=== PATIENT | male | born 1940 | race Caucasian/White ===

== ENCOUNTER → 2017-08-19 | Outpatient (CLI) | payer OTHER ==
[~2017-08-19] MED LIST: COMBIGAN O20 DROP/5 BOTH EYES; LATANOPROST2.5 ML BOTH EYES; LISINOPRIL10 MG PO; NEXIUM40 MG PO; PREDNISONE10 MG PO; RANITIDINE HCL150 M1 PO; TESSALON200 MG PO
[2017-08-21 12:17] LABS: Flow Clinical Information NOT PROVIDED (()); Flow Number of Markers 22 (()); Flow Spec Viability 16 % (())
== END | disposition home or self-care (01) ==
LOC: OPR 08:38 → EDSTATUS 09:00
PROVIDERS: Internal Medicine Pulmonary Disease
PROC: 07B13ZX Excision of Right Neck Lymphatic, Percutaneous Approach, Diagnostic (ICD-10-PCS; principal; 2017-08-19)
DX: R59.0 Localized enlarged lymph nodes (principal)
CPT/HCPCS: 76942; 88305; 88341 TC; 88342 TC

== ENCOUNTER 2017-09-03 08:39 | Day surgery (SDC) | payer OTHER ==
[~2017-09-03] VITALS: Ht 182.9 cm; Wt 83.0 kg
[2017-09-03 09:21] VITALS: BP 161/77
[2017-09-03] MEDS ORDERED: LASIX20 MG PO (09:26)
[2017-09-03 13:45] VITALS: BP 132/65
[2017-09-03 14:21] VITALS: BP 223/88
[2017-09-03 14:49] VITALS: BP 143/67
[2017-09-06 14:15] LABS: Flow Number of Markers 22 (()); Flow Spec Viability 36 % (()); Flow Specimen Type LYMPH NODE (())
== END 2017-09-03 14:55 | disposition home or self-care (01) ==
LOC: SDC 08:39
PROVIDERS: Surgery
PROC: 07B13ZX Excision of Right Neck Lymphatic, Percutaneous Approach, Diagnostic (ICD-10-PCS; principal; 2017-09-03)
DX: R59.1 Generalized enlarged lymph nodes (principal); K22.2 Esophageal obstruction; K21.9 Gastro-esophageal reflux disease without esophagitis; I10 Essential (primary) hypertension; Z82.49 Family history of ischemic heart disease and other diseases of the circulatory system
CPT/HCPCS: 88305; J0690; J3010

== ENCOUNTER → 2017-09-28 | Outpatient (CLI) | payer OTHER ==
[~2017-09-28] MED LIST changes: +LASIX20 MG PO
== END | disposition home or self-care (01) ==
LOC: OPR 09:43 → EDSTATUS 10:00 → OPR 10:00
PROC: 0BBF3ZX Excision of Right Lower Lung Lobe, Percutaneous Approach, Diagnostic (ICD-10-PCS; principal; 2017-09-28)
DX: R91.8 Other nonspecific abnormal finding of lung field (principal); C85.92 Non-Hodgkin lymphoma, unspecified, intrathoracic lymph nodes; I10 Essential (primary) hypertension; K22.9 Disease of esophagus, unspecified
CPT/HCPCS: 71045; 77012; 88305; 88341 TC; 88342 TC; J3010

== ENCOUNTER 2017-10-22 11:51 | Inpatient (IN) | payer OTHER ==
[~2017-10-22] VITALS: Ht 182.9 cm; Wt 84.2 kg
[~2017-10-22 11:51] MED LIST changes: +ADVIL200 M3 PO; +COMPAZINE10 MG PO
[2017-10-22 12:33] LABS: BICARBONATE 26.1 mEq/L (22-26); CARBOXY HGB 2.1 % (0-5); PCO2 32 mm Hg (35-45); PO2 64 mm Hg (80-100); pH 7.52 (7.35-7.45)
[2017-10-22 12:34] LABS: BASE EXCESS 27.1 mEq/L (-3 to +3); COMMENTS - BLOOD GASES A+C+; DEVICE NC; O2 FLOW 2 L/MIN; SITE RR; TOTAL RESP RATE 27 resp/min
[2017-10-22 12:35] LABS: HEMATOCRIT 29.7 % (38.0-50.0); MCH 28.7 PG (29.0-34.0); MCHC 33.7 G/DL (30.0-36.0); MCV 85.3 FL (86-99); PLATELET COUNT 296 K/uL (156-360); RBC DIS.WIDTH-CV 16.8 % (11.8-14.6); RBC DIS.WIDTH-SD 48.8 % (39-53); RED BLOOD COUNT 3.48 M/uL (4.00-5.50); WHITE BLOOD COUNT 9.6 K/uL (4.1-10.2)
[2017-10-22 12:45] LABS: ALBUMIN 3.2 g/dL (3.2-4.8); CHLORIDE 98 mEq/L (99-109); POTASSIUM 4.6 mEq/L (3.7-5.4); SODIUM 133 mEq/L (136-147)
[2017-10-22 12:47] LABS: GLUCOSE 137 mg/dL (70-99); TOTAL PROTEIN 6.4 g/dL (6.4-8.3)
[2017-10-22 12:49] LABS: TOTAL BILIRUBIN 0.6 mg/dL (0.0-1.0)
[2017-10-22 12:51] LABS: ALKALINE PHOSPHATASE 70 IU/L (3-129); CREATININE 1.8 mg/dL (0.6-1.3); GFR ESTIMATE (CALCULATED) 39 mL/min/ (58.99-99999)
[2017-10-22 12:52] LABS: UREA NITROGEN (BUN) 27 mg/dL (9-23)
[2017-10-22 12:53] LABS: AST (GOT) 13 IU/L (2-34)
[2017-10-22 12:54] LABS: ALT (GPT) 11 IU/L (3-49)
[2017-10-22 12:57] LABS: TROP-I INTERPRETATION NEGATIVE; TROPONIN-I 0.02 ng/mL (0.0-0.30)
[2017-10-22 13:13] LABS: ABS NEUTROPHIL COUNT 8.6; EOSINOPHIL ABS CT 0.1; PLAT.SUFFICIENCY ADEQUATE
[2017-10-22 13:29] LABS: APPEARANCE CLEAR ((CLEAR)); BILIRUBIN NEGATIVE; BLOOD SMALL; COLOR YELLOW ((YELLOW)); GLUCOSE (STRIP) NEGATIVE; KETONES NEGATIVE; LEUKOCYTES NEGATIVE; NITRITE NEGATIVE; PROTEIN (STRIP) 30
[2017-10-22 13:37] LABS: BACTERIA NONE SEEN /HPF; EPITHELIAL CELLS RARE /HPF; MUCUS TRACE /LPF; RED BLOOD CELLS 0-5 /HPF (0-5); UCUL ADDED? NO; WHITE BLOOD CELLS 0-5 /HPF (0-5)
[2017-10-22] MEDS ORDERED: PREDNISONE10 MG PO (15:28)
[2017-10-22] MEDS ORDERED: SILVADENE,SSD,T50 GM TP (15:30)
[2017-10-22] MEDS ORDERED: MAGIC MOUTH WASH PO ×2 (15:32→18:58)
[2017-10-22 16:43] VITALS: BP 150/70
[2017-10-22 21:07] VITALS: BP 150/66
[2017-10-23] VITALS (7 sets, daily range): BP systolic 125–156; BP diastolic 60–83
[2017-10-23 06:12] LABS: HEMOGLOBIN 9.8 G/DL (12.5-16.6); MCH 28.1 PG (29.0-34.0); MCHC 32.7 G/DL (30.0-36.0); PLATELET COUNT 338 K/uL (156-360); RBC DIS.WIDTH-CV 16.9 % (11.8-14.6); RBC DIS.WIDTH-SD 50.4 % (39-53); RED BLOOD COUNT 3.49 M/uL (4.00-5.50); WHITE BLOOD COUNT 10.3 K/uL (4.1-10.2)
[2017-10-23 06:35] LABS: CHLORIDE 99 MEQ/L (99-109); CREATININE 1.4 MG/DL (0.6-1.3); GFR ESTIMATE (CALCULATED) 52 mL/min/ (58.99-99999); POTASSIUM 4.7 MEQ/L (3.7-5.4); SODIUM 133 MEQ/L (136-147); UREA NITROGEN (BUN) 21 mg/dL (9-23)
[2017-10-23 06:38] LABS: GLUCOSE 91 mg/dL (70-99)
[2017-10-23 07:04] LABS: ABS NEUTROPHIL COUNT 9.4; ANISOCYTOSIS 1+; BAND NEUTROPHILS 4.4 % (0-8.0); EOSINOPHIL ABS CT 0; LYMPHOCYTES 4.4 % (15.0-45.0); MICROCYTOSIS 1+; MONOCYTES 4.4 % (0-9.0); SEG.NEUTROPHILS 86.8 % (46.0-76.0)
[2017-10-24 04:51] VITALS: BP 175/82
[2017-10-24 06:24] LABS: MCH 28.6 PG (29.0-34.0); MCHC 33.3 G/DL (30.0-36.0); MCV 85.7 FL (86-99); PLATELET COUNT 335 K/uL (156-360); RBC DIS.WIDTH-CV 16.9 % (11.8-14.6); RBC DIS.WIDTH-SD 50.5 % (39-53); WHITE BLOOD COUNT 10.1 K/uL (4.1-10.2)
[2017-10-24 07:18] LABS: CHLORIDE 98 MEQ/L (99-109); CREATININE 1.4 MG/DL (0.6-1.3); GFR ESTIMATE (CALCULATED) 52 mL/min/ (58.99-99999); GLUCOSE 90 mg/dL (70-99); POTASSIUM 4.3 MEQ/L (3.7-5.4); SODIUM 133 MEQ/L (136-147); UREA NITROGEN (BUN) 21 mg/dL (9-23)
[2017-10-24 08:07] VITALS: BP 152/82
[2017-10-24 10:56] VITALS: BP 145/65
[2017-10-24 15:57] VITALS: BP 134/66
[2017-10-24 19:50] VITALS: BP 133/63
[2017-10-25 00:01] VITALS: BP 140/70
[2017-10-25 04:03] VITALS: BP 149/75
[2017-10-25 06:39] LABS: HEMATOCRIT 29.3 % (38.0-50.0); HEMOGLOBIN 9.7 G/DL (12.5-16.6); MCH 28.4 PG (29.0-34.0); MCHC 33.1 G/DL (30.0-36.0); MCV 85.7 FL (86-99); PLATELET COUNT 339 K/uL (156-360); RBC DIS.WIDTH-CV 16.8 % (11.8-14.6); RBC DIS.WIDTH-SD 49.6 % (39-53); RED BLOOD COUNT 3.42 M/uL (4.00-5.50); WHITE BLOOD COUNT 8.8 K/uL (4.1-10.2)
[2017-10-25 07:04] LABS: CHLORIDE 101 MEQ/L (99-109); CREATININE 1.3 MG/DL (0.6-1.3); GFR ESTIMATE (CALCULATED) 57 mL/min/ (58.99-99999); GLUCOSE 100 mg/dL (70-99); POTASSIUM 4.3 MEQ/L (3.7-5.4); SODIUM 135 MEQ/L (136-147); UREA NITROGEN (BUN) 21 mg/dL (9-23)
[2017-10-25 08:24] VITALS: BP 170/74
[2017-10-25 11:30] VITALS: BP 129/60
[2017-10-25 15:59] VITALS: BP 130/62
[2017-10-25 19:52] VITALS: BP 136/68
[2017-10-26 00:14] VITALS: BP 138/63
[2017-10-26 03:49] VITALS: BP 163/68
[2017-10-26 06:47] LABS: HEMATOCRIT 30.7 % (38.0-50.0); HEMOGLOBIN 10.1 G/DL (12.5-16.6); MCH 28.4 PG (29.0-34.0); MCHC 32.9 G/DL (30.0-36.0); MCV 86.2 FL (86-99); PLATELET COUNT 386 K/uL (156-360); RBC DIS.WIDTH-CV 17.1 % (11.8-14.6); RBC DIS.WIDTH-SD 51.3 % (39-53); RED BLOOD COUNT 3.56 M/uL (4.00-5.50); WHITE BLOOD COUNT 9.8 K/uL (4.1-10.2)
[2017-10-26 07:31] LABS: CHLORIDE 100 MEQ/L (99-109); CREATININE 1.2 MG/DL (0.6-1.3); GFR ESTIMATE (CALCULATED) > 59 mL/min/ (58.99-99999); GLUCOSE 84 mg/dL (70-99); POTASSIUM 4.5 MEQ/L (3.7-5.4); SODIUM 137 MEQ/L (136-147); UREA NITROGEN (BUN) 21 mg/dL (9-23)
[2017-10-26 08:33] VITALS: BP 144/72
[2017-10-26 10:50] VITALS: BP 111/55
[2017-10-26 16:03] VITALS: BP 124/63
[2017-10-26 19:38] VITALS: BP 134/63
[2017-10-27] VITALS (7 sets, daily range): BP systolic 117–156; BP diastolic 52–81
[2017-10-28 03:46] VITALS: BP 147/72
[2017-10-28 06:57] VITALS: BP 155/73
[2017-10-28 11:08] VITALS: BP 124/61
[2017-10-28 15:12] VITALS: BP 120/59
[2017-10-28 20:11] VITALS: BP 141/66
[2017-10-28 23:12] VITALS: BP 134/61
[2017-10-29 04:26] VITALS: BP 156/70
[2017-10-29 05:59] LABS: CREATININE 1.2 MG/DL (0.6-1.3); GFR ESTIMATE (CALCULATED) > 59 mL/min/ (58.99-99999)
[2017-10-29 08:15] VITALS: BP 124/62
[2017-10-29] MEDS ORDERED: MUCINEX600 MG PO (09:10)
[2017-10-29] MEDS ORDERED: LEVAQUIN750 MG PO (09:10)
[2017-10-29] MEDS ORDERED: VALACYCLOVIR500 MG PO (09:10)
[2017-10-29] MEDS ORDERED: LOVENOX40 MG/0.4 SC (11:03)
[2017-10-29] MEDS ORDERED: PROTONIX40 MG PO (11:06)
[2017-10-29] MEDS ORDERED: PEPCID20 MG PO (11:07)
[2017-10-29] MEDS ORDERED: TYLENOL325 M2 PO (11:07)
[2017-10-29] MEDS ORDERED: PROVENTIL,2.5 MG/0.5 IH (11:09)
== END 2017-10-29 11:12 | DRG 193 ==
LOC: EME 11:51 → 3EAST 13:41 → EDOF 13:41 → ENRESERV 13:50 → CANRESERV 13:50 → ENRESERV 14:10 → 3EAST 16:11
PROVIDERS: Emergency Medicine; Hospitalist; Internal Medicine
DX: J15.9 Unspecified bacterial pneumonia (principal); T45.1X5A Adverse effect of antineoplastic and immunosuppressive drugs, initial encounter; J96.01 Acute respiratory failure with hypoxia; C81.90 Hodgkin lymphoma, unspecified, unspecified site; B00.1 Herpesviral vesicular dermatitis; I12.9 Hypertensive chronic kidney disease with stage 1 through stage 4 chronic kidney disease, or unspecified chronic kidney disease; N18.3 Chronic kidney disease, stage 3 (moderate); K21.9 Gastro-esophageal reflux disease without esophagitis; G89.29 Other chronic pain; M54.5 Low back pain
CPT/HCPCS: 36415; 36600; 71045; 71046; 71250; 80048; 80053; 80202; 81003; 82565; 83605; 83880; 84484; 85025; 85027; 87040; 87070; 87205; 87449; 93005; 94667; 94669; 94799; 97530 GO; 99281; 99284; J0456; J0692; J1644; J1650; J1956; J2543; J3370; J7512; Q0164

== ENCOUNTER 2017-10-29 08:40 | Inpatient (IN) | payer OTHER ==
[~2017-10-29] VITALS: Ht 182.9 cm; Wt 77.5 kg
[~2017-10-29 08:40] MED LIST changes: +MAGIC MOUTH WASH PO; +SILVADENE,SSD,T50 GM TP
[2017-10-29] MEDS ORDERED: VALACYCLOVIR500 MG PO (09:10)
[2017-10-29] MEDS ORDERED: MUCINEX600 MG PO (09:10)
[2017-10-29] MEDS ORDERED: LEVAQUIN750 MG PO (09:10)
[2017-10-29] MEDS ORDERED: LOVENOX40 MG/0.4 SC (11:03)
[2017-10-29] MEDS ORDERED: PROTONIX40 MG PO (11:06)
[2017-10-29] MEDS ORDERED: PEPCID20 MG PO (11:07)
[2017-10-29] MEDS ORDERED: TYLENOL325 M2 PO (11:07)
[2017-10-29] MEDS ORDERED: PROVENTIL,2.5 MG/0.5 IH (11:09)
[2017-10-29 11:30] VITALS: BP 144/70
[2017-10-29 15:16] VITALS: BP 136/68
[2017-10-29 16:14] VITALS: BP 142/84
[2017-10-30 00:13] VITALS: BP 127/65
[2017-10-30 05:49] VITALS: BP 136/71
[2017-10-30 06:36] LABS: HEMATOCRIT 33.5 % (38.0-50.0); HEMOGLOBIN 10.7 G/DL (12.5-16.6); MCH 28.5 PG (29.0-34.0); MCHC 31.9 G/DL (30.0-36.0); MCV 89.3 FL (86-99); NRBC (%) 0.1 /100 WBC (0-0); PLATELET COUNT 422 K/uL (156-360); RBC DIS.WIDTH-CV 18.7 % (11.8-14.6); RED BLOOD COUNT 3.75 M/uL (4.00-5.50); WHITE BLOOD COUNT 13.6 K/uL (4.1-10.2)
[2017-10-30 07:03] LABS: ALBUMIN 3.1 G/DL (3.2-4.8); ALKALINE PHOSPHATASE 57 IU/L (3-129); ALT (GPT) 24 IU/L (3-49); AST (GOT) 23 IU/L (2-34); CHLORIDE 100 MEQ/L (99-109); CREATININE 1.4 MG/DL (0.6-1.3); GFR ESTIMATE (CALCULATED) 52 mL/min/ (58.99-99999); GLUCOSE 83 mg/dL (70-99); POTASSIUM 5.1 MEQ/L (3.7-5.4); SODIUM 137 MEQ/L (136-147); TOTAL BILIRUBIN 0.4 MG/DL (0.0-1.0); TOTAL PROTEIN 5.2 G/DL (6.4-8.3); UREA NITROGEN (BUN) 26 mg/dL (9-23)
[2017-10-30 15:04] VITALS: BP 117/58
[2017-10-31 04:44] VITALS: BP 145/66
[2017-10-31 06:24] LABS: CHLORIDE 98 MEQ/L (99-109); CREATININE 1.5 MG/DL (0.6-1.3); GFR ESTIMATE (CALCULATED) 48 mL/min/ (58.99-99999); GLUCOSE 101 mg/dL (70-99); POTASSIUM 4.9 MEQ/L (3.7-5.4); SODIUM 135 MEQ/L (136-147); UREA NITROGEN (BUN) 33 mg/dL (9-23)
[2017-10-31 15:33] VITALS: BP 115/71
[2017-11-01 05:33] VITALS: BP 128/73
[2017-11-01 15:36] VITALS: BP 109/55
[2017-11-02 05:52] VITALS: BP 125/57
[2017-11-02 15:34] VITALS: BP 115/53
[2017-11-03 05:05] VITALS: BP 100/47
[2017-11-03 15:54] VITALS: BP 109/55
[2017-11-04 04:50] VITALS: BP 140/63
[2017-11-05 04:56] VITALS: BP 104/54
[2017-11-05] MEDS ORDERED: VALACYCLOVIR500 MG PO (12:30)
[2017-11-05] MEDS ORDERED: SILVADENE,SSD,T50 GM TP (12:34)
[2017-11-05] MEDS ORDERED: REMERON15 M2 PO (13:38)
== END 2017-11-05 14:10 | DRG 555 ==
LOC: 3WEST 08:40
PROVIDERS: Physical Medicine & Rehabilitation Pain Medicine
DX: R26.2 Difficulty in walking, not elsewhere classified (principal); J18.9 Pneumonia, unspecified organism; J96.01 Acute respiratory failure with hypoxia; K21.9 Gastro-esophageal reflux disease without esophagitis; E87.1 Hypo-osmolality and hyponatremia; F41.9 Anxiety disorder, unspecified; C85.90 Non-Hodgkin lymphoma, unspecified, unspecified site; H40.9 Unspecified glaucoma; I12.9 Hypertensive chronic kidney disease with stage 1 through stage 4 chronic kidney disease, or unspecified chronic kidney disease; N18.9 Chronic kidney disease, unspecified
CPT/HCPCS: 71046; 80048; 80053; 85027; 94799; 97110 GO; 97530 GP; J1650; J7512